=== PATIENT | female | born 1970 | race Caucasian/White ===

== ENCOUNTER 2020-08-30 14:17 | Emergency (ER) | payer OTHER, MEDICAID, SELFPAY ==
[2020-08-30 14:30] VITALS: PULSE 56; RESP 18; TEMP 37; O2SAT 98
[2020-08-30 14:31] VITALS: BP 166/95
--- NOTE | 2020-08-30 14:59 | DI.RAD.S_ITS ---
PROCEDURE: XR WRIST LT MIN 3V INDICATIONS: fall, wrist pain TECHNIQUE: 4 views of the wrist were acquired. COMPARISON: None. FINDINGS: Bones: No fractures or dislocations. No suspicious bony lesions. Scaphoid view: Normal Soft tissues: Amorphous calcifications seen adjacent to the ulnar styloid tip and lateral to the distal ulna. IMPRESSION: No acute bony abnormality. Amorphous calcifications of the ulnar side of the wrist comp possibly located adjacent to the triangular fibrocartilage complex (TFCC) and within the extensor carpi ulnaris sheath, which may represent sequela of remote injury of the TFCC versus other trauma. Dictated by: Nomi Kevin M.D. on 08/30/2020 at 14:21 Approved by: Nomi Kevin M.D. on 08/30/2020 at 14:24
--- NOTE | 2020-08-30 15:56 | ED_ITS ---
HPI - Extremity Injury (Upper) <MARY Ceballos - Last Filed: 08/30/20 19:34> General Chief Complaint: Extremity Injury, Upper Stated Complaint: Fall, Hurt Left Wrist Time Seen by Provider: 08/30/20 14:43 Source: patient Mode of arrival: Ambulatory History of Present Illness HPI narrative: 49-year-old female presents to the emergency department for left wrist pain. She states she tripped and fell with her left hand outstretched approximately 2 days ago. She complains of radial wrist pain, she states she has broken this wrist in the past and would like an x-ray. She denies any other injuries such as head injury, elbow pain, or shoulder pain. Patient denies any other symptoms such as fevers, chills, nausea, vomiting, or diarrhea. Related Data Home Medications Medication Instructions Recorded Confirmed . (No Home Medications) #0 02/22/11 Review of Systems <MARY Ceballos - Last Filed: 08/30/20 19:34> Review of Systems Narrative: REVIEW OF SYSTEMS: GENERAL: Denies fever or chills. HENT: No head trauma. CARDIOVASCULAR: No chest pain. RESPIRATORY: No cough. GASTROINTESTINAL: No nausea or vomiting. GENITOURINARY: No flank pain. MUSCULOSKELETAL: Complains of left wrist pain, see HPI. INTEGUMENTARY: No rash. NEURO: No numbness or tingling. PSYCH: No behavior or mood changes. Patient History <MARY Ceballos - Last Filed: 08/30/20 19:34> Medical History No significant medical problems (Acute) Social History Smoking Status: Never smoker alcohol intake frequency: 0-2 drinks per day Exam <MARY Ceballos - Last Filed: 08/30/20 19:34> Initial Vital Signs Initial Vital Signs: Vital Signs Temperature 98.6 F 08/30/20 14:30 Pulse Rate 56 L 08/30/20 14:30 Respiratory Rate 18 08/30/20 14:30 Pulse Oximetry 98 08/30/20 14:30 PHYSICAL EXAMINATION: GENERAL: Well groomed, alert, and cooperative. Answers questions promptly and appropriately. Vital signs noted. HENT: Normocephalic, atraumatic. EYES: Symmetrical, sclera white, no periorbital swelling. CARDIOVASCULAR: Regular rate. RESPIRATORY: Normal respiratory rate, trachea midline, airway patent. No stridor, nasal flaring or accessory muscle use. MUSCULOSKELETAL: Tenderness to radial aspect of left wrist, full range of motion of wrist. [employer] strength bilaterally. Slight ecchymosis and swelling noted. Normal gait and coordination. Equal tone and mass bilaterally. EXTREMITIES: CMS intact. SKIN: Warm, dry, soft, appropriate color for ethnicity. No lesions, rashes, or wounds. NEURO: Alert and Oriented X 3. No sensory deficits. PSYCH: Appropriate affect and mood. <Makayla Everett DO - Last Filed: 08/31/20 08:30> Initial Vital Signs Initial Vital Signs: Vital Signs Temperature 98.6 F 08/30/20 14:30 Pulse Rate 56 L 08/30/20 14:30 Respiratory Rate 18 08/30/20 14:30 Pulse Oximetry 98 08/30/20 14:30 Course <MARY Ceballos - Last Filed: 08/30/20 19:34> Orders Ordered: ED Orders 08/30/20 14:59 XR wrist LT min 3V Stat Vital Signs Vital signs: Vital Signs - 8 hr 08/30/20 14:30 08/30/20 14:31 Temperature 98.6 F Pulse Rate 56 L Respiratory Rate 18 Blood Pressure 166/95 H Pulse Oximetry 98 <Makayla Everett DO - Last Filed: 08/31/20 08:30> Orders Ordered: ED Orders 08/30/20 14:59 XR wrist LT min 3V Stat Vital Signs Vital signs: Vital Signs - 8 hr 08/30/20 14:30 08/30/20 14:31 Temperature 98.6 F Pulse Rate 56 L Respiratory Rate 18 Blood Pressure 166/95 H Pulse Oximetry 98 MDM - Extremity Injury (Upper) <MARY Ceballos - Last Filed: 08/30/20 19:34> Medical Records Attestation: I reviewed the patient's medical records. Lab Data Attestation: I reviewed the patient's lab results. Imaging Data Extremity x-ray #1: Radiologist's Impression: [address] [address] XRay Report Signed Patient: Evita Mansfield EMR#: [id number] : 1970Acct:[id number] Age/Sex: 49 / FDate of Service: 08/30/20 Loc: ED Accession Number: [id number] Procedure: XR wrist LT min 3V Ordering Provider: Kim Leonard PROCEDURE: XR WRIST LT MIN 3V INDICATIONS: fall, wrist pain TECHNIQUE: 4 views of the wrist were acquired. COMPARISON: None. FINDINGS: Bones: No fractures or dislocations. No suspicious bony lesions. Scaphoid view: Normal Soft tissues: Amorphous calcifications seen adjacent to the ulnar styloid tip and lateral to the distal ulna. IMPRESSION: No acute bony abnormality. Amorphous calcifications of the ulnar side of the wrist comp possibly located adjacent to the triangular fibrocartilage complex (TFCC) and within the extensor carpi ulnaris sheath, which may represent sequela of remote injury of the TFCC versus other trauma. Dictated by: Nomi Kevin M.D. on 08/30/2020 at 14:21 Approved by: Nomi Kevin M.D. on 08/30/2020 at 14:[address] [facility] Narrative Medical decision making narrative: History and examination concerning concerning for a sprain versus strain versus contusion. Less likely fracture due to negative x-ray and good range of motion. However, patient was encouraged to follow up with her primary care provider in 1-2 weeks for further evaluation if pain persists. Patient left without discharge instructions. Return precautions were given. Discharge Plan Departure Patient Disposition: Home Clinical Impression: Acute wrist pain Qualifiers: Laterality: left Qualified Code(s): M25.532 - Pain in left wrist Discharge Date/Time: 08/30/20 15:45 Instructions: DI for Wrist Sprain Activity Restrictions/Additional Instructions: Thank you for entrusting me with your care today. As discussed, your x-rays negative for any fractures, there is some calcifications around your TFCC complex. Please follow-up with your primary care provider in 1-2 weeks for further evaluation especially if her symptoms continue. Return emergency department for new or worsening symptoms. Prescriptions: No Action . (No Home Medications) Qty: 0 RF: 0 <Makayla Everett DO - Last Filed: 08/31/20 08:30> Cosign ED Attending Sulyature Attestation: I was immediately available in the department for consultation. Documentation has been reviewed. I agree with assessment and plan.
== END 2020-08-30 15:45 | disposition home or self-care (01) ==
PROVIDERS: Emergency Provider Nurse Practitioner
DX: M25.532 Pain in left wrist (principal); W19.XXXA Unspecified fall, initial encounter
CPT/HCPCS: 73110; 99281; 99283